=== PATIENT | male | born 1980 | race Caucasian/White ===

== ENCOUNTER 2022-03-04 08:20 | Outpatient (CLI) | payer BC, SELFPAY ==
[2022-03-04 12:44] LABS: Chloride* 102 mmol/L (96-114); Sodium* 139 mmol/L (135-149)
[2022-03-04 12:45] LABS: Potassium* 4.9 mmol/L (3.6-5.1)
[2022-03-04 12:47] LABS: Creatinine* 1.1 mg/dL (0.5-1.5); Estimated Glomerular Filt Rate 87 ml/min
[2022-03-04 12:48] LABS: Blood Urea Nitrogen* 22 mg/dL (5-24); Calcium* 9.9 mg/dL (8.4-10.6); Carbon Dioxide* 26 mmol/L (20-32); Glucose* 61 mg/dL (60-115)
== END 2022-03-04 08:21 | disposition home or self-care (01) ==
LOC: LKVREF 08:21
PROVIDERS: Visit Provider Emergency Medicine
DX: Z01.818 Encounter for other preprocedural examination (principal)
CPT/HCPCS: 80048

== ENCOUNTER 2022-08-03 08:04 | Outpatient (CLI) | payer BC, SELFPAY ==
[2022-08-03 08:42] LABS: SARS Antigen* negative (Negative)
== END 2022-08-03 08:05 | disposition home or self-care (01) ==
PROVIDERS: Visit Provider Surgery
DX: Z12.11 Encounter for screening for malignant neoplasm of colon (principal); K62.1 Rectal polyp; K57.30 Diverticulosis of large intestine without perforation or abscess without bleeding; Z80.0 Family history of malignant neoplasm of digestive organs
CPT/HCPCS: 45385; 87426; 88305; 99153; J2250; J3010